=== PATIENT | female | born 1960 | race Caucasian/White ===

== ENCOUNTER → 2017-02-09 | Outpatient (CLI) | payer BC ==
--- NOTE | 2017-02-09 12:06 | DIAGNOSTIC IMAGING REPORT ---
PROCEDURE: XR CERVICAL SPINE 4 OR 5 VIEW INDICATION: NECK PAIN,CERVICALRADICULOPATHY TECHNIQUE: Five views (six images).. COMPARISON: None. FINDINGS: There is mild this space narrowing at C3-4, C4-5 with moderate disc space narrowing at C5-6 and C6-7 associated with anterior posterior osteophytes. There is straightening of the cervical lordosis. There are moderate degenerative changes of the facet joints. There is mild left C4-5, C5-6, and C6-7 neural foraminal narrowing. There is moderate right C3-4 and C4-5 neural foraminal narrowing. No evidence of an acute process or fracture. Neural foramina are normal. IMPRESSION: 1. Moderate to marked degenerative changes of the cervical spine. 2. Straightening of the cervical lordosis compatible with degenerative changes or chronic cervical spasm. 3. Mild left C4-5, C5-6, an C6-7 neural foraminal narrowing. 4. Moderate right C3-4 and C4-5 neural foraminal narrowing.
== END ==
LOC: XR SRH 11:06
DX: M50.30 Other cervical disc degeneration, unspecified cervical region (principal); M40.50 Lordosis, unspecified, site unspecified; M48.02 Spinal stenosis, cervical region

== ENCOUNTER 2017-03-02 10:26 | Outpatient (CLI) | payer BC ==
--- NOTE | 2017-03-02 14:49 | DIAGNOSTIC IMAGING REPORT ---
PROCEDURE: MR CERVICAL SPINE W/O CONT INDICATION: NECK PAIN TECHNIQUE: Noncontrast T1, T2, and STIR sagittal images. T2 and gradient axial images. COMPARISON: There is mild disc space narrowing from C4-5 to C7-T1. 2.5 mm C5-6 and 1 mm C6-7 retrolisthesis. Moderate spur formation. No fracture or suspicious osseous lesion. Craniocervical junction and cord are normal. FINDINGS: C2-3: Minor disc bulge. C3-4: Minor disc bulge and mild right foraminal stenosis. No spinal stenosis. C4-5: Minor disc bulge and facet arthropathy resulting in mild right foraminal stenosis but there is no spinal stenosis. C5-6: Moderate broad-based disc bulge with facet arthropathy resulting in mild bilateral of foraminal stenosis. There is no spinal stenosis. C6-7: Mild left posterior disc bulge with facet arthropathy resulting in mild left foraminal stenosis. No spinal stenosis. C7-T1: Small disc bulge and facet arthropathy resulting in mild left foraminal stenosis. IMPRESSION: 1. Moderate degenerative changes with multilevel disc degenerative changes and grade 1 C5-6 and C6-7 retrolisthesis 2. Mild right C3-4, right C4-5, bilateral C5-6, left C6-7 and C7-T1 foraminal stenosis
== END 2017-03-02 23:00 ==
LOC: MRI SRH 10:26
DX: M50.322 Other cervical disc degeneration at C5-C6 level (principal); M50.223 Other cervical disc displacement at C6-C7 level; M48.02 Spinal stenosis, cervical region